=== PATIENT | female | born 1995 | race Caucasian/White ===

== ENCOUNTER 2018-04-25 16:33 | Emergency (ER) | payer OTHER ==
[2018-04-25] MEDS: LIDOCAINE 2%/EPI (MDV) 20ML INJ INJ (19:30)
[2018-04-25] MEDS: SILVER NITRATE SWAB TOP (19:44)
== END 2018-04-25 19:59 | disposition home or self-care (01) ==
LOC: FTE 16:33
DX: L02.31 Cutaneous abscess of buttock (principal); F17.210 Nicotine dependence, cigarettes, uncomplicated
CPT/HCPCS: 10060; 99283-25